=== PATIENT | male | born 1985 | race Caucasian/White ===

== ENCOUNTER 2016-03-14 22:02 | Emergency (ER) | payer MEDICAID ==
--- NOTE | 2016-03-14 22:09 | EDPHY ---
H & P HPI/ROS: HPI CHIEF COMPLAINT: Alcohol intoxication, chest pain HISTORY OF PRESENT ILLNESS: This patient 30-year-old male who presents emergency room by EMS from the [facility], where he is intoxicated apparently according to EMS staff he has had a alcohol level of 234. He has been in out of the [facility] all day today. Patient was initially brought by his family for involuntary admission for alcohol abuse. Patient drinks alcohol daily he has whiskey. He tells me drank multiple pints of whiskey today. Presents emergency room by EMS complaining of chest pain tells me it hurts when you press on his anterior chest wall, denies left arm pain, neck pain, jaw pain, nausea, diaphoresis, shortness of breath, pleuritic pain. Denies trauma to his chest wall. Tells me the only time he feels the pain is when you press on his anterior chest. Of note here in the emergency room he is intoxicated with alcohol. He smells of alcohol slurring his speech. Past Medical History: Anxiety, depression Past Surgical History: denies surgical history Social History: Daily alcohol use, usually drinks multiple pt of whiskey, chews tobacco, denies illegal drugs Family History: noncontributory ROS REVIEW OF SYSTEMS: A comprehensive 10 point review of systems is otherwise negative aside from elements mentioned in the history of present illness. Exam Constitutional triage nursing summary reviewed, vital signs reviewed, awake/ alert. Eyes normal conjunctivae and sclera, EOMI, PERRLA. HENT normal inspection, atraumatic, moist mucus membranes, no epistaxis, neck supple/ no meningismus, no raccoon eyes. Respiratory clear to auscultation bilaterally, normal breath sounds, no respiratory distress, no wheezing. Cardiovascular chest wall: this is tender to palpation over the anterior chest wall reproducible, there is no signs of trauma, no crepitus, rate normal, regular rhythm, no murmur, no edema, distal pulses normal. Gastrointestinal soft, non-tender, no rebound, no guarding, normal bowel sounds, no distension, no pulsatile mass. Genitourinary no CVA tenderness. Musculoskeletal no midline vertebral tenderness, full range of motion, no calf swelling, no tenderness of extremities, no meningismus, good pulses, neurovascularly intact. Skin pink, warm, & dry, no rash, skin atraumatic. Neurologic awake, alert and oriented x 3, AAOx3, moves all 4 extremities equally, motor intact, sensory intact, CN II-XII intact, normal cerebellar, normal vision, normal speech. Psychiatric normal mood/affect. Heme/Lymph/Immune no lymphadenopathy. Differential Diagnosis: Includes but is not limited to in a particular order, musculoskeletal anterior chest wall pain, chest contusion, alcohol abuse, alcohol intoxication, pneumonia, alcohol-induced gastritis, alcohol induced esophagitis, doubt ACS given reproducible musculoskeletal pain. This patient will have an EKG and a two view chest x-ray for evaluation of what is most likely musculoskeletal anterior chest wall chest pain. Will also obtain a breath alcohol. Most likely this patient be able to be discharged back to the [facility]. Do not feel like this is cardiac in origin chest pain as it is very musculoskeletal reproducible on exam and has no other complaints. EKG interpretation by me on record in [facility] system. Impression time of EKG 2208: Sinus rhythm rate of 86 I do not appreciate any acute ischemic changes specifically no ST elevation, ST depression or significant T-wave abnormalities is noted there is most likely incomplete right bundle branch block. 2213: Breath alcohol is 336 2239: ED x-ray chest two view; negative for acute cardiopulmonary disease. Image interpreted by myself. 2342: re-evaluation at this time patient is resting comfortably in no acute distress. He was sleeping upon re-evaluation he has no complaints. He ambulated well with a steady gait he p.o. challenge without any difficulty. At this time he denies chest pain or shortness of breath. His vital signs have been reviewed are unremarkable. Allow him to be discharged back to the [facility] liver him take home. Source: Patient, EMS - Medical/Surgical History Hx Asthma: No Hx Chronic Respiratory Disease: No Hx Diabetes: No Hx Cardiac Disease: No Hx Renal Disease: No Hx Cirrhosis: No Hx Alcoholism: No Hx HIV/AIDS: No Hx Splenectomy or Spleen Trauma: No Other PMH: hx of depression - Social History Smoking Status: Never smoked Constitutional: Initial Vital Signs Temperature (C) 36.7 C 03/14/16 22:05 Heart Rate 94 03/14/16 22:05 Respiratory Rate 16 03/14/16 22:05 Blood Pressure 139/103 H 03/14/16 22:05 O2 Sat (%) 95 03/14/16 22:05 O2 Delivery Mode Room Air Allergies/Adverse Reactions: No Known Allergies Allergy (Verified 12/05/14 09:37) Home Medications: Medication Instructions Recorded hydrOXYzine HCL [Hydroxyzine HCl] 25 mg PO HS #30 tablet 12/05/14 Citalopram 03/14/16 Departure - Departure Disposition: Home, Routine, Self-Care Clinical Impression: Alcohol abuse Alcoholic intoxication Qualifiers: Complication of substance-induced condition: uncomplicated Qualifier Code: ( F10.120) Alcohol abuse with intoxication, uncomplicated Condition: Good Instructions: Alcohol Intoxication (ED), Abuse of Alcohol (ED) Referrals: NONE *PRIMARY CARE P,. [Primary Care Provider] - As per Instructions
[2016-03-14 22:19] VITALS: TEMP 98.1
--- NOTE | 2016-03-14 22:25 | CPEKG ---
Heart Rate: 86 RR Interval: 698 P-R Interval: 188 QRSD Interval: 106 QT Interval: 364 QTC Interval: 436 P [place]: 38 QRS [place]: -1 T Wave [place]: 34 EKG Severity - ABNORMAL ECG - EKG Impression: SINUS RHYTHM EKG Impression: INCOMPLETE RIGHT BUNDLE BRANCH BLOCK Electronically Signed By: Eva Devi 14-Mar-2016 23:12:35
--- NOTE | 2016-03-14 22:38 | DX ---
Chest, AP and Lateral, 3 views History: Chest pain. Findings: Lungs clear. Heart normal for portable technique. No pneumothorax or pleural effusion. EKG leads overlie the chest. Impression: No source for chest pain identified.
[2016-03-14] MEDS ORDERED: CHLORDIAZEPOXIDE 25MG PREPK#6 BTL TAKEHOME ONE (23:43)
[2016-03-14 23:56] VITALS: BP 132/101; PULSE 92; RESP 16; O2SAT 97
== END 2016-03-15 01:11 | disposition home or self-care (01) ==
LOC: EDUNIT#
DX: F10.120 Alcohol abuse with intoxication, uncomplicated (principal); F17.220 Nicotine dependence, chewing tobacco, uncomplicated

== ENCOUNTER 2017-02-14 12:17 | Emergency (ER) | payer MEDICAID ==
[2017-02-14 12:25] VITALS: RESP 18; TEMP 98.4
[2017-02-14] MEDS ORDERED: CHLORDIAZEPOXIDE 25MG PREPK#6 BTL TAKEHOME ONE (13:31)
--- NOTE | 2017-02-14 13:33 | EDPHY ---
H & P Stated Complaint: ETOH Time Seen by Provider: 02/14/17 13:19 HPI/ROS: CHIEF COMPLAINT: Alcohol abuse HISTORY OF PRESENT ILLNESS: The patient is a 31-year-old man who comes to the emergency department for Librium. He has a history of alcohol abuse and is brought by family. [facility] requirement however the they were told to bring him here 1st so that he could get a Librium prepack. The patient is asymptomatic. He states that his last drink was this morning. He denies any fevers or trauma. He denies call ingestants. Family is stating repeatedly that they were told by [facility] that we could send him back there in a taxi. REVIEW OF SYSTEMS: Constitutional: denies: chills, fever, recent illness, recent injury EENTM: denies: blurred vision, double vision, nose congestion Respiratory: denies: cough, shortness of breath Cardiac: denies: chest pain, irregular heart rate, lightheadedness, palpitations Gastrointestinal/Abdominal: denies: abdominal pain, diarrhea, nausea, vomiting, blood streaked stools Genitourinary: denies: dysuria, frequency, hematuria, pain Musculoskeletal: denies: joint pain, muscle pain Skin: denies: lesions, rash, jaundice, bruising Neurological: denies: headache, numbness, paresthesia, tingling, dizziness, weakness Hematologic/Lymphatic: denies: blood clots, easy bleeding, easy bruising Immunologic/allergic: denies: HIV/AIDS, transplant EXAM: GENERAL: Well-appearing, well-nourished and in no acute distress. HEAD: Atraumatic, normocephalic. EYES: Pupils equal round and reactive to light, extraocular movements intact, sclera anicteric, conjunctiva are normal. ENT: TMs normal, nares patent, oropharynx clear without exudates. Moist mucous membranes. NECK: Normal range of motion, supple without lymphadenopathy or JVD. LUNGS: Breath sounds clear to auscultation bilaterally and equal. No wheezes rales or rhonchi. HEART: Regular rate and rhythm without murmurs, rubs or gallops. ABDOMEN: Soft, nontender, normoactive bowel sounds. No guarding, no rebound. No masses appreciated. BACK: No CVA tenderness, no spinal tenderness, step-offs or deformities EXTREMITIES: Normal range of motion, no pitting or edema. No clubbing or cyanosis. NEUROLOGICAL: Cranial nerves II through XII grossly intact. Normal speech, normal gait. 5/5 strength, normal movement in all extremities, normal sensation PSYCH: Normal mood, normal affect. SKIN: Warm, dry, normal turgor, no visible rashes or lesions. Source: Patient Exam Limitations: No limitations - Personal History Current Tetanus Diphtheria and Acellular Pertussis (TDAP): Yes - Medical/Surgical History Hx Asthma: No Hx Chronic Respiratory Disease: No Hx Diabetes: No Hx Cardiac Disease: No Hx Renal Disease: No Hx Cirrhosis: No Hx Alcoholism: Yes Hx HIV/AIDS: No Hx Splenectomy or Spleen Trauma: No Other PMH: hx of depression, ETOH Abuse x 6 years (1 pint whiskey daily) - Family History Significant Family History: No pertinent family hx - Social History Smoking Status: Current every day smoker Alcohol Use: Sober Drug Use: None Constitutional: Initial Vital Signs Temperature (C) 36.9 C 02/14/17 12:23 Heart Rate 100 02/14/17 12:23 Respiratory Rate 18 02/14/17 12:23 Blood Pressure 151/99 H 02/14/17 12:23 O2 Sat (%) 95 02/14/17 12:23 O2 Delivery Mode Room Air Allergies/Adverse Reactions: No Known Allergies Allergy (Verified 12/05/14 09:37) Home Medications: Medication Instructions Recorded NK [No Known Home Meds] 02/14/17 Medical Decision Making - Diagnostics EKG Interpretation: An EKG obtained and was read and documented in trace view. Please see trace view for full reading and report. Sinus tachycardia ED Course/Re-evaluation: The patient has no complaints currently. He has suffered withdrawal symptoms before but never seizures. I will give him a prepack for the [facility]. His family may take him back there or taxi. While the patient was being discharged nurse noticed that his heart rate went up to 120. She called me into the room and his heart rate was 150. We decided to get an EKG. The patient tells me that he has had palpitations before but no specific diagnosis. He thinks it is related to alcohol. Is taxi has been called however we will have them wait to see if his sinus tachycardia improves with benzodiazepines. 2:35 p.m. despite me specifically asking the family not to leave they did. The patient is not on a hold but they told me he was here because of probation. His heart rate was improving after Ativan however nurse return to the room and found that he had eloped. Will call the family to notify them. 3:00 p.m. the nurse tried to call phone numbers we have listed and all 3 were disconnected. We will notify case management. Differential Diagnosis: Partial list of the Differential diagnosis considered include but were not limited to; alcohol addiction, alcohol withdrawal and although unlikely based on the history and physical exam, I also considered infection, trauma, electrolyte abnormality. - Data Points Medications Given: Discontinued Medications Chlordiazepoxide (Librium 25 Mg Prepack#6) 1 btl TAKEHOME EDNOW ONE Stop: 02/14/17 13:32 Last Admin: 02/14/17 13:46 Dose: 1 btl Lorazepam (Ativan) 2 mg PO EDNOW ONE Stop: 02/14/17 14:06 Last Admin: 02/14/17 14:10 Dose: 2 mg Departure - Departure Disposition: Against Medical Advice Clinical Impression: Alcohol dependence Qualifiers: Substance use status: in withdrawal Complication of substance-induced condition : with unspecified complication Qualified Code(s): F10.239 - Alcohol dependence with withdrawal, unspecified Condition: Fair Instructions: Abuse of Alcohol (ED) Referrals: NONE *PRIMARY CARE P,. [Primary Care Provider] - As per Instructions Karen Daniels MD [Medical Doctor] - As per Instructions
[2017-02-14 13:55] VITALS: BP 132/86; PULSE 147; O2SAT 93
--- NOTE | 2017-02-14 14:02 | CPEKG ---
Heart Rate: 128 RR Interval: 469 P-R Interval: 144 QRSD Interval: 96 QT Interval: 296 QTC Interval: 432 P [place]: 48 QRS [place]: -15 T Wave [place]: 76 EKG Severity - BORDERLINE ECG - EKG Impression: SINUS TACHYCARDIA EKG Impression: BORDERLINE LEFT AXIS DEVIATION EKG Impression: BORDERLINE T ABNORMALITIES, ANT-LAT LEADS Electronically Signed By: Jacek Maria 14-Feb-2017 14:06:55
[2017-02-14] MEDS ORDERED: LORazepam 1 MG TAB PO ONE (14:05)
--- NOTE | 2017-02-14 17:44 | ASMTCMCOM ---
CM Note CM Note Notes: Requested by ED MD to try to contact patient's parents or training officer. Patient was brought in by his parents for ETOH abuse; they had initially taken him to [facility] (at the recommendation by his P.O. Lyn Zaidi, with [facility] Probation Department). But the staff were concerned about patient going into severe withdrawals so they recommended he come to the ED to be medically cleared and then return to with Librium. Per ED MD, patient's parents had asked if they were okay to leave because they were under the impression that the patient would be provided a cab back to . The ED MD states he asked the patient's parents multiple times to stay with the patient because his discharge plan was still unknown. Patient's parents ended up leaving anyway. Patient was going to be discharged via cab to with Librium but started experiencing worsening withdrawal symptoms so further medication management was given. Then the patient eloped, left AMA. This CM and ED RN attempted to contact patient ([phone]) and patient's mother Lupe ([phone], ) but all phone numbers listed were disconnected. This CM attempted to contact patient's Aunt Rosie ([phone]) but the voicemail box was full. This CM contacted [place] [employer] but patient is not currently in their system. This CM called [facility] dispatch ([phone]) and was told patient had just been releases from senior living. This CM was able to connect with patient's P.O. Lyn Zaidi ([phone], follow prompts to staff directory). Lyn states she was called by patient's father, Chadwick ([phone]) this morning about patient being intoxicated and recommended they take patient to the hospital. Lyn says she will reach out to Chadwick and explain the current situation and provide this CM # for Chadwick to call if he had any further questions or concerns. Date Signed: 02/14/2017 05:44 PM Electronically Signed By:Breonna Bhat RN
--- NOTE | 2017-02-14 17:46 | ASDISCHSUM ---
Discharge Information Plan Status:Substance Abuse Referrals Medically Cleared to Leave: Discharge Date:02/14/2017 02:45 PM D/C Disposition:Against Medical Advice ADT D/C Disposition:Home, Routine, Self-Care Projected Discharge Date:02/14/2017 02:45 PM Transportation at D/C:None or Unknown Discharge Delay Reason: Follow-Up Date:02/14/2017 02:45 PM Discharge Slot: Final Diagnosis: Placement Information Patient Contact Information Contact Name:BOB Relationship:Mother Address:[address] [place] [address] City:[place] Alternate Phone: [facility]/Zip Code:[place] [address] Email: Financial Information Financial Class: Primary Plan Desc:MEDICAID [facility] FIRST POLICE [employer] Primary Plan Number:[id number] Secondary Plan Desc: Secondary Plan Number: Assessment Information [facility] CM Progress Note CM Note CM Note Notes: Requested by ED MD to try to contact patient's parents or staff air defense officer. Patient was brought in by his parents for ETOH abuse; they had [facility] taken [facility] (at the [facility] But the staff were concerned about patient going into severe withdrawals so they recommended he come to the ED to be medically cleared and then return to with Librium. Per ED MD, patient's parents had asked if they were okay to leave because they were under the impression that the patient would be provided a cab back to . The ED MD states he asked the patient's parents multiple times to stay with the patient because his discharge plan was still unknown. Patient's parents ended up leaving anyway. Patient was going to be discharged via cab to with Librium but started experiencing worsening withdrawal symptoms so further medication management was given. Then the patient eloped, left AMA. This CM and ED RN attempted to contact patient ([phone]) and patient's mother Lupe ([phone], ) but all phone numbers listed were disconnected. This CM attempted to contact patient's Aunt Rosie ([phone]) but the voicemail box was full. This CM contacted [place] [employer] but patient is not currently in their system. This CM called [facility] dispatch ([phone]) and was told patient had just been releases from custodial. This CM was able to connect with patient's P.O. Lyn Dyan ([phone], follow prompts to staff directory). Lyn states she was called by patient's father, Chadwick ([phone]) this morning about patient being intoxicated and recommended they take patient to the hospital. Lyn says she will reach out to Chadwick and explain the current situation and provide this CM # for Chadwick to call if he had any further questions or concerns. Date Signed: 02/14/2017 05:44 PM Electronically Signed By:Breonna Bhat RN LACE LACE Acuity / Level of Care Answers: No. Emergency dept visits in Answers: 1 last 6 months Score: 1 Date Signed: 02/14/2017 05:45 PM Electronically Signed By:Breonna Bhat RN Intervention Information
== END 2017-02-14 14:45 | disposition left against medical advice (07) ==
DX: F10.239 Alcohol dependence with withdrawal, unspecified (principal); F17.200 Nicotine dependence, unspecified, uncomplicated